=== PATIENT | male | born 1990 | race Caucasian/White ===

== ENCOUNTER 2024-09-19 07:12 | Day surgery (SDC) | payer OTHER ==
[2024-09-19] MEDS: Lactated Ringers 1,000 ML IV SCH (07:25)
[2024-09-19] MEDS ORDERED: fentaNYL 100 MCG/2 ML SDV IVPUSH PRN (07:32)
[2024-09-19] MEDS ORDERED: HYDROmorphone 0.5 MG/0.5 ML Syringe IVPUSH PRN (07:32)
[2024-09-19] MEDS ORDERED: Ondansetron 4 MG/2 ML SDV IVPUSH PRN (07:32)
[2024-09-19] MEDS ORDERED: Sodium Chloride 0.9% 10 ML Syringe FLUSH PRN (07:36)
[2024-09-19] MEDS ORDERED: Propofol 200 MG/20 ML SDV ONE ×2 (07:37→07:51)
[2024-09-19] MEDS ORDERED: Sodium Chloride 0.9% 10 ML Syringe FLUSH SCH (09:00)
== END 2024-09-19 08:40 | disposition home or self-care (01) ==
LOC: JD.SDS 07:12
PROVIDERS: ATTEND Surgery
DX: K21.9 Gastro-esophageal reflux disease without esophagitis (principal); K29.50 Unspecified chronic gastritis without bleeding; K44.9 Diaphragmatic hernia without obstruction or gangrene; K52.9 Noninfective gastroenteritis and colitis, unspecified
CPT/HCPCS: 43239; C9777; J2704; J7120; 00731